=== PATIENT | male | born 1965 | race Caucasian/White ===

== ENCOUNTER 2017-10-28 20:22 | Emergency (ER) | payer MEDICARE ==
[2017-10-28 20:40] VITALS: BP 134/92; PULSE 64; RESP 18; TEMP 97.8
--- NOTE | 2017-10-28 20:56 | ED ---
Neck Injury/Pain HPI - General Chief Complaint: Neck Pain/Injury Stated Complaint: neck pain Time Seen by Provider: 10/28/17 20:40 Source: patient, RN notes reviewed Mode of arrival: ambulatory Limitations: no limitations - History of Present Illness Initial Comments: This is a 52-year-old male who presents to the emergency department with chief complaint of neck pain. Patient states that he has had left-sided neck pain for the past 8 months. He states that he woke up one morning and thought that he had just slept on his neck wrong. He states that ever since then the pain has progressed. He states that he feels his vertebra are moving. He states that he feels the vertebra "shift and clunk." He denies any specific injuries or trauma. He states that there is a constant baseline pain but that it is increased with movement of the neck. He states that sometimes when he turns his head to the left he feels a sharp shooting pain down the left arm. He also complains of some numbness and tingling to the left upper extremity. He does state that [facility] does have [facility] of the cervical spine. Patient denies any fevers or chills, chest pain or shortness of breath, nausea or vomiting. He does state that he has been getting headaches and had an episode of dizziness today where he felt like his "equilibrium was off." He states he has not been taking any medications for treatment of the neck pain. - Related Data Allergies Allergy/AdvReac Type Severity Reaction Status Date / Time No Known Allergies Allergy Verified 10/28/17 20:40 Review of Systems ROS Statement: Those systems with pertinent positive or pertinent negative responses have been documented in the HPI. ROS Other: All systems not noted in ROS Statement are negative. Past Medical History Additional Past Medical History / Comment(s): chronic back pain History of Any Multi-Drug Resistant Organisms: None Reported Additional Past Surgical History / Comment(s): facial reconstruction Past Psychological History: No Psychological Hx Reported Smoking Status: Current every day smoker Past Alcohol Use History: None Reported Past Drug Use History: None Reported General Exam - General Exam Comments Initial Comments: General: Awake and alert, well-developed; in no apparent distress. HEENT: Head atraumatic, normocephalic. Pupils are equal, round and reactive to light. Extraocular movements intact. Oropharynx moist without erythema or exudate. Bilateral TMs are pearly without effusion. Neck: Supple. Normal ROM. There is tenderness on palpation of left cervical musculature. No vertebral bony point tenderness. Cardiovascular: Regular rate and rhythm. No murmurs, rubs or gallops. Chest symmetrical. Radial pulses are 2+ equal and palpable bilaterally. Respiratory: Lungs clear to auscultation bilaterally. No wheezes, rales or rhonchi. Normal respiratory effort with no use of accessory muscles. Musculoskeletal: Normal ROM, no tenderness bilateral upper and lower extremities. Ambulating normally. Skin: [place], warm and dry without rashes or lesions. Neurological: Alert and oriented x3. CN II-XII grossly intact. Speech is fluent and answers are appropriate. No focal neuro deficits. Sensation is intact. Psychiatric: Normal mood and affect. No overt signs of depression or anxiety noted. Limitations: no limitations Course Vital Signs 10/28/17 20:37 Temperature 97.8 F Pulse Rate 64 Respiratory 18 Rate Blood Pressure 134/92 O2 Sat by Pulse 96 Oximetry Medical Decision Making - Medical Decision Making This is a 52-year-old male who presents to the emergency department with chief complaint of neck pain that has been going on for 8 months. An x-ray was obtained and it revealed spondylosis at C6 to C7. Recommended the use of anti- inflammatories. Patient states that he has been taking ibuprofen with minimal relief. I offered prescription of muscle relaxers as well and the patient declines. He does state that he has appointment scheduled for December 04 with neurology. Patient's vital signs are stable and he is in no acute distress at this time. He will be discharged home. - Radiology Data Radiology results: report reviewed X-ray cervical spine findings: The cervical vertebra have normal alignment. Posterior elements are intact. There is some narrowing at C6 to 7 disc space with anterior spurring. Atlantoaxial facet joint is normal. There are no cervical ribs. Neural foramina are fairly well-maintained. Impression: Spondylosis at C6 to 7. No fracture. Disposition Clinical Impression: Cervical spondylosis Disposition: HOME SELF-CARE Condition: Good Instructions: Cervical Radiculopathy (ED) Additional Instructions: Please follow-up with neurology as scheduled. May take ibuprofen 600 mg every 6 hours. Please follow up with primary care provider within 1-2 days. Return to emergency department if symptoms should worsen or any concerns arise. Is patient prescribed a controlled substance at d/c from ED?: No Referrals: Sean Moser DO [Primary Care Provider] - 1-2 days Time of Disposition: 21:54
--- NOTE | 2017-10-28 21:40 | XR ---
EXAMINATION TYPE: XR cervical spine comp DATE OF EXAM: 10/28/2017 COMPARISON: NONE HISTORY: Neck pain TECHNIQUE: 6 views FINDINGS: The cervical vertebra have normal alignment. Posterior elements are intact. There is some n arrowing at C6-7 disc space with anterior spurring. Atlantoaxial facet joint is normal. There are no cervical ribs. Neural foramina are fairly well-maintained. IMPRESSION: Spondylosis at C6-7. No fracture.
== END 2017-10-28 22:00 | disposition home or self-care (01) ==
LOC: EC 20:22
DX: M47.812 Spondylosis without myelopathy or radiculopathy, cervical region (principal); F17.200 Nicotine dependence, unspecified, uncomplicated
CPT/HCPCS: 72050; 99283

== ENCOUNTER → 2017-12-27 | Outpatient (CLI) | payer OTHER ==
[2017-12-27 15:43] LABS: Blood Urea Nitrogen 15 mg/dL (9-20)
== END | disposition home or self-care (01) ==
LOC: LABWHC1 15:18
PROVIDERS: ATTEND Physician Assistant
DX: Z01.812 Encounter for preprocedural laboratory examination (principal); S09.90XA Unspecified injury of head, initial encounter; R51 Headache; R42 Dizziness and giddiness; M54.2 Cervicalgia
CPT/HCPCS: 82565; 84520

== ENCOUNTER → 2017-12-30 | Outpatient (CLI) | payer OTHER ==
--- NOTE | 2017-12-30 10:21 | US ---
EXAMINATION TYPE: US carotid duplex BILAT DATE OF EXAM: 12/30/2017 COMPARISON: NONE CLINICAL HISTORY: S09.90XA Head injury / M54.2 Cervicalgia. EXAM MEASUREMENTS: RIGHT: Peak Systolic Velocity (PSV) cm/sec ----- Right CCA: 87.9 ----- Right ICA: 61.4 ----- Right ECA: 99.7 ICA/CCA ratio: 0.7 RIGHT: End Diastole cm/sec ----- Right CCA: 22.2 ----- Right ICA: 25.7 ----- Right ECA: 21.8 LEFT: Peak Systolic Velocity (PSV) cm/sec ----- Left CCA: 83.3 ----- Left ICA: 59.4 ----- Left ECA: 91.9 ICA/CCA ratio: 0.7 LEFT: End Diastole cm/sec ----- Left CCA: 21.6 ----- Left ICA: 26.2 ----- Left ECA: 17.8 VERTEBRALS (direction of flow): Right Vertebral: Antegrade Left Vertebral: Antegrade Rhythm: Normal Minimal atherosclerotic changes with no significant velocity elevations. IMPRESSION: 1. Atheromatous plaquing without significant flow-limiting stenosis. Criteria for Assigning % of Stenosis / Diameter reduction (Estimation based on the indirect measurements of the internal carotid artery velocities (ICA PSV). 1. Normal (no stenosis)=ICA PSV < 125 cm/s: ratio < 2.0: ICA EDV<40 cm/s. 2. Less than 50% stenosis=ICA PSV < 125 cm/s: ratio < 2.0: ICA EDV<40 cm/s. 3. 50 to 69% stenosis=ICA PSV of 125 to 230 cm/s: ration 2.0 ? 4.0: ICA EDV 40-100 cm/s. 4. Greater than 70% stenosis to near occlusion= ICA PSV > 230 cm/s: ratio > 4.0: ICA EDV > 100 cm/s. 5. Near occlusion= ICA PSV velocities may be low or undetectable: variable ratio and ICA EDV. 6. Total occlusion=unable to detect flow.
--- NOTE | 2017-12-30 11:42 | MR ---
EXAMINATION TYPE: MR brain wo/w cspine wo DATE OF EXAM: 12/30/2017 COMPARISON: Cervical spine x-ray October 28, 2017 HISTORY: Dizziness, head injury, Neck pain all per order. Headache with neck pain and dizziness with pain or weakness into left arm and shoulder per patient. TECHNIQUE: Multiplanar, multisequence images of the brain and brainstem is performed without and with IV contras t, utilizing 11.5 mL intravenous Gadavist . Multiplanar, multisequence imaging of cervical spine is p erformed without contrast. FINDINGS: BRAIN: Diffusion weighted images demonstrate no evidence of a recent infarct or other diffusion abnormality. There is no no worrisome extra-axial fluid collection. The ventricular system and cisternal spaces are normal in size and appearance. The brain volume is age appropriate. There are some scattered fo ci of T2 hyperintensity seen throughout the white matter bilaterally. Approximately 5-10 small scatte red lesions are seen measuring 3 mm or smaller in size. Midline structures demonstrate normal morphology. The craniocervical junction appears within normal limits. Post contrast images demonstrate no abnormal enhancement. The dural venous sinuses appear pa tent. The visualized sinuses are clear and the globes are intact. Nasal septum is deviated to right o f midline. IMPRESSION: Mild to minimal nonspecific white matter changes may be on basis of altered vascular mech anics related to product of migraine headaches, other etiologies are not excluded. No suspicious enha ncement is noted. C-SPINE: Evaluation is suboptimal as is degraded by motion artifact. FINDINGS: Sagittal images of the cervical spine show the craniocervical junction to appear within nor mal limits. The cervical and upper thoracic spinal cord is normal in course, caliber, and signal. V ertebral alignment is straightened. There is fairly moderate disc space narrowing and anterior spurri ng C6-C7 level. The vertebral body and intravertebral disk heights otherwise are normal. Small poste rior disc herniations are seen effacing anterior thecal sac C5-C6 through C7-T1 levels. Heterogeneous Modic type I endplate changes anteriorly C6-C7 level are noted. Axial images at C2-C3 level shows left-sided uncovertebral facet degenerative changes causing mild to moderate left-sided neural foraminal narrowing. Right-sided neural foramen is patent. Axial images at C3-C4 level show uncovertebral facet degenerative changes bilaterally causing mild le ft-sided neural foraminal narrowing. Spinal canal is preserved. Right-sided neural foramen is patent. Axial images at C4-C5 level show uncovertebral facet degenerative changes bilaterally causing mild to moderate bilateral neural foraminal narrowing. Spinal canal is preserved. Bilateral neural foramina are patent. Axial images at C5-C6 level show artifact from motion making evaluation suboptimal. There is small ce ntral disc protrusion mildly effacing anterior thecal sac, bilateral neural foramina are patent. Axial images at C6-C7 level show broad-based posterior disc protrusion mildly effacing anterior theca l sac, bilateral neural foramina are patent. Motion artifact degradation is noted. Axial images at C7-T1 level are felt within normal limits. IMPRESSION: Straightening of cervical spine with multilevel degenerative changes seen as detailed abo ve.
== END | disposition home or self-care (01) ==
LOC: RADUSMAIN 09:08
PROVIDERS: ATTEND Psychiatry & Neurology Neurology
DX: I65.29 Occlusion and stenosis of unspecified carotid artery (principal); M47.812 Spondylosis without myelopathy or radiculopathy, cervical region; M50.222 Other cervical disc displacement at C5-C6 level; M48.02 Spinal stenosis, cervical region
CPT/HCPCS: 93880; 70553; 72141; A9581

== ENCOUNTER → 2022-12-13 | Outpatient (CLI) | payer OTHER ==
[2022-12-13 15:53] LABS: Blood Urea Nitrogen 15.4 mg/dL (9.0-27.0); Carbon Dioxide 21.7 mmol/L (21.6-31.8); Chloride 103 mmol/L (96-109); Potassium 4.2 mmol/L (3.5-5.5); Sodium 138 mmol/L (135-145)
[2022-12-13 20:38] LABS: HCT 48.9 % (39.6-50.0); HGB 16.1 d/dL (12.0-15.0); MCH 29.8 pg (27.0-32.0); MCHC 32.9 d/dL (32.0-37.0); MCV 90.6 FL (80.0-97.0); Mean Platelet Volume 9.5 FL (9.5-12.2); NRBC Per 100 WBC 0 X 10*3/uL (0.00-0.01); Platelet Count 316 X 10*3/uL (140-440); RDW 13.7 % (11.5-14.5); WBC 11.13 X 10*3/uL (4.50-10.00)
== END | disposition home or self-care (01) ==
LOC: LABWHC1 08:18
PROVIDERS: ATTEND Internal Medicine Interventional Cardiology
DX: Z01.812 Encounter for preprocedural laboratory examination (principal); R94.39 Abnormal result of other cardiovascular function study
CPT/HCPCS: 36415; 80051; 82565; 84520; 85027

== ENCOUNTER 2022-12-24 06:43 | Day surgery (SDC) | payer OTHER ==
[~2022-12-24 06:43] MED LIST: ALPRAZolam 0.25 MG TAB PO PRN; ALPRAZolam 0.5 MG TAB PO PRN; ASPIRIN 325 MG TAB PO STA; NITROGLYCERIN SL TABS 0.4 MG TAB SUBLINGUAL PRN; SODIUM CHLORIDE 0.9% 1,000 ML IV ONE; SODIUM CHLORIDE 0.9% 1,000 ML in EMPTY BAG 1 BAG IV SCH
[2022-12-24 07:26] VITALS: RESP 16; TEMP 97.3
[2022-12-24] MEDS ORDERED: fentaNYL (PF) 50 MCG/ML 2 ML AMP ONE (07:33)
[2022-12-24] MEDS ORDERED: HEPARIN SODIUM 1,000 UN/ML (10ML VL) ONE (07:33)
[2022-12-24] MEDS ORDERED: fentaNYL (PF) 50 MCG/ML 2 ML AMP IV ONE (07:45)
[2022-12-24] MEDS ORDERED: LIDOCAINE 1% INJ 10MG/ML (5 ML VIAL-PF) SQ ONE (07:49)
[2022-12-24] MEDS ORDERED: MIDAZOLAM 2 MG/2 ML VIAL IV ONE (07:49)
[2022-12-24] MEDS ORDERED: VERAPAMIL SYRINGE (5 MG/10 ML) INTRAARTER ONE (07:50)
[2022-12-24] MEDS: HEPARIN SODIUM 1,000 UN/ML (10ML VL) IV ONE ×2 (07:55→08:09)
[2022-12-24] MEDS ORDERED: CLOPIDOGREL 75 MG TAB ONE (08:05)
[2022-12-24] MEDS ORDERED: CLOPIDOGREL 75 MG TAB PO ONE (08:09)
[2022-12-24] MEDS ORDERED: IOPAMIDOL-370 100ML BTL INJ ONE ×2 (08:34→08:48)
[2022-12-24] MEDS ORDERED: MAG HYDROX/AL HYDROX/SIMETH 30 ML CUP PO PRN (08:57)
[2022-12-24] MEDS ORDERED: RX INFO: IV CONTRAST WAS GIVEN 1 EACH MISC MISCELLANE PRN (08:57)
[2022-12-24] MEDS ORDERED: ZOLPIDEM 5 MG TAB PO PRN (08:57)
[2022-12-24] MEDS ORDERED: ATROPINE SULFATE 0.1 MG/ML 10ML SYRINGE IV PRN (08:57)
[2022-12-24] MEDS ORDERED: NITROGLYCERIN SL TABS 0.4 MG TAB SUBLINGUAL PRN (08:57)
[2022-12-24] MEDS ORDERED: NON FORMULARY DRUG (Rosuvastatin 20 MG Tablet) PO SCH (09:00)
[2022-12-24] MEDS ORDERED: ASPIRIN 81 MG PO SCH (09:00)
[2022-12-24] MEDS ORDERED: lisinopriL 5 MG TAB PO SCH (09:00)
[2022-12-24] MEDS ORDERED: SODIUM CHLORIDE 0.9% 1,000 ML in EMPTY BAG 1 BAG IV SCH (09:00)
[2022-12-24] MEDS ORDERED: METOPROLOL TARTRATE 25 MG TAB PO SCH (09:00)
[2022-12-24 18:00] VITALS: BP 120/65; PULSE 58
[2022-12-25] MEDS ORDERED: CLOPIDOGREL 75 MG TAB PO SCH (09:00)
--- NOTE | 2022-12-26 13:11 | P.CARDCATH ---
Date of Procedure: 12/24/22 Description of Procedure: Cardiac Catheterization: The patient is a 57-year-old male who presented with symptoms of progressive dyspnea. Recommendations were made regarding cardiac catheterization, the risks and the complications were discussed with the patient who is in full understanding and agreement. Procedure Description: Patient was brought to lab clerk in fasting semi-sedated state after receiving Fentanyl and Benadryl achieiving moderate conscious sedated state. Using Xylocaine Anesthesia and Seldinger technique, a 6-Burkinan sheath was introduced in the right radial artery . Subsequently, selective coronary angiography was performed using a 5-Burkinan 3.5 bend Yulia catheter. Multiple views of the coronary artery including hemiaxial views were obtained. The right Yulia catheter was used to cross the aortic valve and LVEDP was calculated. PCI: After removing the catheters a 6-Burkinan EBU 3.75 guiding cath, after cannulating the left main a 014 BMW J-wire was positioned in the distal LAD. Subsequently a [employer] eye intravascular ultrasound catheter was introduced and imaging was performed. After removing the catheter 3.5 x 18 mm Xience jimy point was deployed at 16 angeles, after removing the balloon 3.5 x 12 mm Xience jimy point and dilated at 16 angeles. After removing the catheter intravascular ultrasound imaging was repeated subsequently a 4.0 x 12 mm NC Treck was advanced to the distal stent and dilated at 10 angeles and after removing the balloon a 4.5 x 15 mm NC Treck balloon was advanced to the proximal stent and an inflation to 10 angeles was done. After the last inflation the wire was withdrawn back and again he catheter, images were obtained and revealed stable successful stenting. Following that, catheter and sheath were removed. Hemostasis was obtained with deployment of TR band . There was no immediate complication. Patient was returned to room in stable condition. Of note, the patient received a total of 9000 units of intravenous heparin as well as intra-arterial verapamil. He received an oral loading dose of clopidogrel, his ACT was monitored. Findings: Left main: This is a large size vessel, bifurcating into LAD and left circumflex, left main has no high-grade stenosis LAD: This is a large size vessel, reaching to the apex, giving rise to a very proximal diagonal branch the second diagonal branch is small in caliber. At the takeoff of the second diagonal branch there is a 90% stenosis there as of the vessel has no high-grade stenosis Left circumflex: This is a nondominant vessel giving rise to 2 obtuse marginal branch that had no evidence of high-grade stenosis RCA: This is a dominant vessel large in caliber, bifurcating into PDA and PLV. The right, is diffusely disease in the midsegment with area of stenosis up to 70% the distal segment has an area of stenosis up to 99% then is totally occluded prior to the bifurcation. There is slow flow into the PDA and PLV. There is contralateral collaterals from the LAD system to the PDA and the PLV as well. Left Ventriculogram: Not performed Hemodynamics: There was no gradient across the aortic valve , LVEDP was 16-20 mmHg Conclusion: 1. Chronically occluded distal RCA with ipsilateral and contralateral collaterals 2. Critical stenosis in the mid LAD 3. No obstructive disease in the left circumflex 4. Successful stenting of the mid LAD with reduction of stenosis from 90% to 0% with intravascular ultrasound imaging Recommendations: The patient will continue on aspirin and Plavix in addition to aggressive coronary risks modifications for 6 months, he'll be reevaluated down the road regarding the need to undergo revascularization of his RCA. The findings and the recommendations were discussed with the patient and the family and they were in full understanding and agreement.
== END 2022-12-24 12:37 | disposition home or self-care (01) ==
LOC: CATHCVL 06:43
PROVIDERS: ATTEND Internal Medicine Interventional Cardiology
DX: I25.10 Atherosclerotic heart disease of native coronary artery without angina pectoris (principal); I25.82 Chronic total occlusion of coronary artery; I10 Essential (primary) hypertension; E78.5 Hyperlipidemia, unspecified; E11.9 Type 2 diabetes mellitus without complications; F17.210 Nicotine dependence, cigarettes, uncomplicated; I49.3 Ventricular premature depolarization; E78.2 Mixed hyperlipidemia; G47.33 Obstructive sleep apnea (adult) (pediatric); Z79.899 Other long term (current) drug therapy
CPT/HCPCS: 92978; 93458; C9600; C1769 ×3; C1887; C1894; C1753; C1874 ×2; C1725 ×2; J2250; J2001; J3010; J1644; Q9967

== ENCOUNTER → 2023-03-01 | Outpatient (CLI) | payer OTHER | END | disposition home or self-care (01) | LOC: RADUSWWP 09:48 | PROVIDERS: ATTEND Internal Medicine Interventional Cardiology | DX: Z53.9 Procedure and treatment not carried out, unspecified reason (principal) ==

== ENCOUNTER 2023-04-24 09:30 | Day surgery (SDC) | payer OTHER ==
[2023-04-18 15:34] VITALS: BMI 35.9
[~2023-04-24 09:30] MED LIST changes: -SODIUM CHLORIDE 0.9% 1,000 ML IV ONE; -SODIUM CHLORIDE 0.9% 1,000 ML in EMPTY BAG 1 BAG IV SCH
[2023-04-24] MEDS ORDERED: VERAPAMIL 2.5 MG/ML 2 ML AMP ONE (10:59)
[2023-04-24] MEDS ORDERED: LIDOCAINE 1% INJ 10MG/ML (20 ML MDV) ONE (11:00)
[2023-04-24 11:22] LABS: Basophils % (A) 1 %; Eosinophils # (A) 0.2 k/uL (0-0.7); Eosinophils % (A) 3 %; HCT 42.3 % (39.0-53.0); HGB 14.6 gm/dL (13.0-17.5); Lymphocytes # (A) 3.2 k/uL (1.0-4.8); Lymphocytes % (A) 39 %; MCH 30.3 pg (25.0-35.0); MCHC 34.6 g/dL (31.0-37.0); MCV 87.5 fL (80.0-100.0); Mean Platelet Volume 7.1; Monocytes # (A) 0.5 k/uL (0-1.0); Monocytes % (A) 6 %; Neutrophils # (A) 4.1 k/uL (1.3-7.7); Neutrophils % (A) 49 %; Platelet Count 201 k/uL (150-450); RBC 4.83 m/uL (4.30-5.90); RDW 12.8 % (11.5-15.5); WBC 8.2 k/uL (3.8-10.6)
[2023-04-24] MEDS ORDERED: fentaNYL (PF) 50 MCG/ML 2 ML AMP ONE (11:37)
[2023-04-24] MEDS ORDERED: HEPARIN SODIUM 1,000 UN/ML (10ML VL) ONE ×2 (11:37→12:23)
[2023-04-24 11:38] LABS: African American GFR (CKD) >90 (>60 ml/min/1.73 sqM); Anion Gap 11 mmol/L; Blood Urea Nitrogen 10 mg/dL (9-20); Carbon Dioxide 22 mmol/L (22-30); Chloride 104 mmol/L (98-107); Glucose 121 mg/dL (74-99); Non-African American GFR(CKD) >90 (>60 ml/min/1.73 sqM); Potassium 4.1 mmol/L (3.5-5.1); Sodium 137 mmol/L (137-145)
[2023-04-24] MEDS ORDERED: IV FLUID CONTINUATION 1,000 ML IV ONE (12:00)
[2023-04-24] MEDS: fentaNYL (PF) 50 MCG/ML 2 ML AMP IVP ONE ×2 (12:02→13:43)
[2023-04-24] MEDS ORDERED: LIDOCAINE 1% INJ 10MG/ML (20 ML MDV) SQ ONE (12:04)
[2023-04-24] MEDS: MIDAZOLAM 2 MG/2 ML VIAL IVP ONE ×2 (12:05→12:50)
[2023-04-24] MEDS ORDERED: VERAPAMIL SYRINGE (5 MG/10 ML) INTRAARTER ONE (12:06)
[2023-04-24] MEDS: HEPARIN SODIUM 1,000 UN/ML (10ML VL) IV ONE ×5 (12:12→13:16)
[2023-04-24] MEDS ORDERED: HYDROmorphone 0.5 MG/0.5 ML SYRINGE IVP ONE (13:03)
[2023-04-24] MEDS ORDERED: IOPAMIDOL-370 200ML BTL INJ ONE ×2 (13:56→14:17)
[2023-04-24] MEDS ORDERED: RX INFO: IV CONTRAST WAS GIVEN 1 EACH MISC MISCELLANE PRN (14:32)
[2023-04-24] MEDS ORDERED: NITROGLYCERIN SL TABS 0.4 MG TAB SUBLINGUAL PRN (14:32)
[2023-04-24] MEDS ORDERED: ATROPINE SULFATE 0.1 MG/ML 10ML SYRINGE IV PRN (14:32)
[2023-04-24] MEDS ORDERED: MAG HYDROX/AL HYDROX/SIMETH 30 ML CUP PO PRN (14:32)
[2023-04-24] MEDS ORDERED: ZOLPIDEM 5 MG TAB PO PRN (14:32)
--- NOTE | 2023-04-24 14:44 | P.CARDCATH ---
Date of Procedure: 04/24/23 Description of Procedure: PERCUTANEOUS TRANSLUMINAL CORONARY ANGIOPLASTY Asst.: Dr. Borden CLINICAL INFORMATION: The patient is a 58-year-old male with a known history of CAD status post stenting of the LAD, chronically occluded RCA continued and having symptoms of chest discomfort in spite of maximal medical therapy . Recommendations were made regarding angioplasty and stenting. The procedure as well as the risks and the complications were discussed with the patient who was in full understanding and agreement. PROCEDURE: The patient was brought to the laborer shipyard in the fasting and semi- sedated state after receiving fentanyl and Benadryl using Xylocaine anesthesia in the Seldinger technique a 6-Portuguese sheath was introduced in the right radial artery and using micropuncture technique an 8-Portuguese sheaths were then introduced in the right femoral artery. A 6 Portuguese EBU 3.75 guiding catheter wa s introduced into the system. And was used to cannulate the left main. An 8- Portuguese AL 0.75 was used to cannulate the right coronary ostium. After after that images with dual ejection were obtained. A 0.014 BMW J wire with a Corsair catheter and guide liner were advanced across the proximal lesion and positioned distally. Attempts to advance the wire to the chronic total occlusion were unsuccessful, the wire was exchanged to a 0.014 whisper J-wire and subsequently fielder XT that were unsuccessful in crossing the lesion. Subsequently a pilot steam yacht 200 wire was advanced and was able to cross the lesion. The Corsair catheter was removed with trapping in the guiding catheter. Following that a 3.0 x 20 mm Treck balloon was advanced and inflated at 8 atmosphere. Multiple inflations throughout the vessel were done. After removing the balloon a [place] chin eye IVUS catheter was advanced and imaging were obtained. Following that a 2.75 x 28 mm Xience stent was deployed. It was dilated at 16. Proximal to that stent a 3.0 x 23 mm Xience jimy point was deployed 14 angeles and proximal to that stent a 4.0 x 38 mm Xience jimy point stenting was deployed and when similar stent proximal to its close to the proximal segment were deployed at 16 angeles. Subsequently repeat intravascular ultrasound was done. Subsequent to that at 2.25 X 12 mm Xience jimy point was deployed in the PLV at 14 angeles. After removing the balloon a 3.0 x 20 mm NC Treck balloon was advanced to the distal segment and inflated at 10 angeles, subsequently 3.5 x 20 mm NC Treck was advanced to the distal RCA and inflated at 10 angeles and subsequently a 4.0 X20 mm NC trek was advanced proximally and inflation in the proximal 2 stents were done at 10 angeles. After the last inflation, after appropriate wait, the balloon and the guidewire were withdrawn back into the guiding catheter. Images were obtained and repeated. Those images reveal stable successful stenting. At that point, the guiding catheter, the balloon, and guidewire were removed. The sheath was removed. Hemostasis was obtained with and deployment of a TR band and an Angio-Seal. There were no immediate complications. The patient was returned to the room in stable condition. Of note, the patient received 13,000 units of heparin and continued on Plavix. His ACT was followed. There was no immediate complications. He had chest discomfort that resolved at the end of the procedure. RESULTS: Successful stenting of the mid and distal RCA with reduction of stenosis from 100 % to less than 5 %. RECOMMENDATIONS: The patient will continue on aspirin and Plavix for 6 months in addition to aggressive coronary risk modifications, maintaining the LDL less than 70 mg/dL. The findings and recommendations were discussed with the patient and the family, they are in full understanding and agreement. Duration of sedation: 132 minutes
[2023-04-24] MEDS ORDERED: SODIUM CHLORIDE 0.9% 1,000 ML in EMPTY BAG 1 BAG IV SCH (14:45)
[2023-04-24] MEDS: SODIUM CHLORIDE 0.9% 1,000 ML in EMPTY BAG 1 BAG IV SCH (16:02)
[2023-04-24] MEDS: METOPROLOL TARTRATE 25 MG TAB PO SCH (20:38)
[2023-04-25] MEDS: SODIUM CHLORIDE 0.9% 1,000 ML in EMPTY BAG 1 BAG IV SCH ×2 (06:07→08:54)
[2023-04-25 06:17] LABS: Glucose,Whole Blood 123 mg/dL (70-110)
[2023-04-25 08:29] LABS: African American GFR (CKD) >90 (>60 ml/min/1.73 sqM); Anion Gap 10 mmol/L; Blood Urea Nitrogen 11 mg/dL (9-20); Calcium 8.8 mg/dL (8.4-10.2); Carbon Dioxide 24 mmol/L (22-30); Chloride 103 mmol/L (98-107); Glucose 118 mg/dL (74-99); Non-African American GFR(CKD) >90 (>60 ml/min/1.73 sqM); Potassium 4.3 mmol/L (3.5-5.1); Sodium 137 mmol/L (137-145)
--- NOTE | 2023-04-25 08:34 | P.PN ---
Subjective Progress Note Date: 04/25/23 PROGRESS NOTE The patient is a 58-year-old male with a known history of CAD status post stenting of the LAD with known chronic total occlusion of the RCA who had persistent chest discomfort. He underwent recanalization of the RCA. He's feeling well this morning, he denies any chest discomfort, dizziness or palpitations. His breathing is stable. He is ambulating without difficulty and continues to be in sinus mechanism Medications: Aspirin, Plavix 75 g daily, Zestril 5 mg daily, Lopressor 25 mg twice a day, Crestor 20 mg daily, Imdur 30 mg daily PHYSICAL EXAMINATION: Blood pressure 110/60 heart rate 60 LUNGS: Clear to auscultation HEART: Regular rate and rhythm, S1, S2. No S3. No systolic murmur ABDOMEN: Soft, nontender, no organomegaly EXTREMETIES: No edema, right groin no hematoma, right radial pulse intact LAB: BUN 11, creatinine 0.69. EKG with no acute changes IMPRESSION: 1. Status post stenting of chronic total occlusion of the RCA 2. Patent stent to the LAD 3. Hypertension 4. Hyperlipidemia PLAN: 1. Continue present therapy 2. Increase physical activity 3. Discharge home today 4. And follow-up in one week Objective - Vital Signs Vital signs: Vital Signs Temp 97.8 F 04/25/23 04:00 Pulse 53 L 04/25/23 04:00 Resp 16 04/25/23 04:00 BP 110/62 04/25/23 04:00 Pulse Ox 97 04/25/23 04:00 FiO2 Intake & Output 04/24/23 04/25/23 04/25/23 18:59 06:59 18:59 Intake Total 590 Output Total 900 350 Balance -310 -350 Weight 124.6 kg 124.5 kg Intake: IV 350 Oral 240 Output: Urine 900 350 Other: # Voids 1 - Labs CBC & Chem 7: 04/24/23 09:51 04/25/23 07:42 Labs: Abnormal Lab Results - Last 24 Hours (Table) 04/24/23 04/25/23 04/25/23 Range/Units 09:51 06:15 07:42 Glucose 121 H 118 H (74-99) mg/dL POC Glucose (mg/dL) 123 H (70-110) mg/dL
[2023-04-25] MEDS: METOPROLOL TARTRATE 25 MG TAB PO SCH (08:57)
[2023-04-25] MEDS ORDERED: CLOPIDOGREL 75 MG TAB PO SCH (09:00)
[2023-04-25] MEDS ORDERED: ATORVASTATIN 40 MG TAB PO SCH (09:00)
[2023-04-25] MEDS ORDERED: lisinopriL 5 MG TAB PO SCH (09:00)
[2023-04-25] MEDS ORDERED: ASPIRIN 81 MG PO SCH (09:00)
[2023-04-25 09:55] VITALS: BP 122/72; PULSE 73; RESP 18; TEMP 98
== END 2023-04-25 10:29 | disposition home or self-care (01) ==
LOC: CATHCVL 09:30 → 3SCARD 14:16 → CATHCVL 04-25 10:29
PROVIDERS: ATTEND Internal Medicine Interventional Cardiology
DX: I25.10 Atherosclerotic heart disease of native coronary artery without angina pectoris (principal); I10 Essential (primary) hypertension; E78.5 Hyperlipidemia, unspecified; M19.90 Unspecified osteoarthritis, unspecified site; E11.9 Type 2 diabetes mellitus without complications; Z95.5 Presence of coronary angioplasty implant and graft; Z79.82 Long term (current) use of aspirin; Z79.02 Long term (current) use of antithrombotics/antiplatelets; Z79.899 Other long term (current) drug therapy; I25.82 Chronic total occlusion of coronary artery; Z79.84 Long term (current) use of oral hypoglycemic drugs; Z87.891 Personal history of nicotine dependence
CPT/HCPCS: 92978; 80048 ×2; 85025; C9607; C1769 ×7; C1760; C1887 ×3; C1894 ×2; C1725 ×4; C1753; C1874 ×4; C1751; J2250; J2001; J3010; J1644; J1170; Q9967

== ENCOUNTER → 2024-05-05 | Outpatient (CLI) | payer OTHER ==
--- NOTE | 2024-05-06 08:54 | US ---
EXAMINATION TYPE: US extremity nonvasc mass RT DATE OF EXAM: 05/05/2024 COMPARISON: NONE CLINICAL INDICATION: Male, 59 years old with history of M71.331 CYST RIGHT WRIST; Cyst of right wrist per order. Patient feels lump in right wrist. Patient had angioplasty in this wrist 1 year ago. TECHNIQUE: Scanned right wrist at patient's area of concern. FINDINGS/IMPRESSION: Complex hypoechoic area without vascular flow seen at area of concern within th e right wrist: 4.2 x 1.8 x 1.3 cm. Somewhat elongated appearance. Artery that appears to branch from the radial artery is seen coursing along the periphery of this area. This is indeterminate and could represent a hematoma versus venous thrombosis versus other etiologies such as a complex cyst. Further evaluation with CT with IV contrast is recommended. [facility], , 05/06/2024 8:52 AM
== END | disposition home or self-care (01) ==
LOC: RADUSWWP 15:25
PROVIDERS: ATTEND Family Medicine
DX: M71.331 Other bursal cyst, right wrist (principal)

== ENCOUNTER → 2024-06-08 | Outpatient (CLI) | payer OTHER ==
--- NOTE | 2024-06-08 19:27 | CT ---
EXAMINATION TYPE: CT wrist RT w con DATE OF EXAM: 06/08/2024 5:33 PM COMPARISON: Ultrasound 05/05/2024 CLINICAL INDICATION: Male, 59 years old with history of M71.331 OTHER BURSAL CYST, RIGHT WRIST; PHH, bursal cyst rt wrist TECHNIQUE: Axial images were obtained of the CT wrist RT w con, Additional coronal and sagittal refor matted images and soft tissue and bone window were obtained for review. 3-D reconstruction was create d on a separate workstation. Contrast used:100 mL of Isovue 300 with IV Contrast, (None if empty) Oral contrast used: (None if empty) CT DLP: 92.9 mGycm, Automated exposure control for dose reduction was used. FINDINGS: There is no evidence of fracture, subluxation, or dislocation. No significant soft tissue swelling. No focal muscular atrophy or edema is identified. No radiopaque foreign body identified. Mi ld degeneration changes of the wrist present osteophyte formation and joint space narrowing. There ma y be subtle small step-off of the distal radius articular surface. The palpable marker correlates with small fluid collection somewhat irregular shaped measuring up to 15 x 6 mm. Extends into the thenar eminence. Measuring up to 31 mm in totality and may be arising fro m the wrist joint. IMPRESSION: 1. No evidence of fracture. 2. Irregular shaped fluid collection is seen on ultrasound possibly extending from the wrist joint c orrelate with MRI for soft tissue injury/plunging joint effusion there is infected bursa versus other . [facility], , 06/08/2024 7:25 PM
== END | disposition home or self-care (01) ==
LOC: RADCTMAIN 15:27
PROVIDERS: ATTEND Family Medicine
DX: M71.331 Other bursal cyst, right wrist (principal); M25.731 Osteophyte, right wrist
CPT/HCPCS: 73201; Q9967

== ENCOUNTER → 2024-09-25 | Day surgery (SDC) | payer OTHER ==
[~2024-09-25] MED LIST changes: -ASPIRIN 325 MG TAB PO STA; +ASPIRIN 81 MG PO SCH; +ATORVASTATIN 40 MG TAB PO SCH; +ATROPINE SULFATE 0.1 MG/ML 10ML SYRINGE IV PRN; +CLOPIDOGREL 75 MG TAB PO SCH; +ISOSORBIDE MONONITRATE ER 30 MG TAB.ER.24H PO SCH; +MAG HYDROX/AL HYDROX/SIMETH 30 ML CUP PO PRN; +METOPROLOL TARTRATE 25 MG TAB PO SCH; +RX INFO: IV CONTRAST WAS GIVEN 1 EACH MISC MISCELLANE PRN; +SODIUM CHLORIDE 0.9% 1,000 ML in EMPTY BAG 1 BAG IV SCH; +ZOLPIDEM 5 MG TAB PO PRN; +lisinopriL 5 MG TAB PO SCH
[2024-09-25] MEDS: SODIUM CHLORIDE 0.9% 1,000 ML in EMPTY BAG 1 BAG IV SCH (06:50)
[2024-09-25] MEDS: IV FLUID CONTINUATION 1,000 ML IV ONE ×2 (06:50→14:16)
[2024-09-25] MEDS: ASPIRIN 325 MG TAB PO STA (07:04)
[2024-09-25 07:07] VITALS: TEMP 97.9
[2024-09-25] MEDS: LIDOCAINE 1% INJ 10MG/ML (20 ML MDV) SQ ONE (07:34)
[2024-09-25] MEDS: fentaNYL (PF) 50 MCG/ML 2 ML AMP IVP ONE (07:34)
[2024-09-25] MEDS: VERAPAMIL SYRINGE (5 MG/10 ML) INTRAARTER ONE (07:35)
[2024-09-25] MEDS: HEPARIN SODIUM 1,000 UN/ML (10ML VL) IVP ONE (07:40)
[2024-09-25] MEDS: MIDAZOLAM 2 MG/2 ML VIAL IVP ONE (07:42)
[2024-09-25] MEDS: CLOPIDOGREL 75 MG TAB PO ONE (07:53)
[2024-09-25] MEDS: IOPAMIDOL-370 100ML BTL INJ ONE ×2 (08:31→09:23)
[2024-09-25] MEDS: NITROGLYCERIN 1000MCG/10ML SYRINGE INTRACORON ONE (09:19)
[2024-09-25] MEDS: HEPARIN SODIUM,PORCINE 10,000 UNIT in SODIUM CHLORIDE 0.9% 1,000 ML IRRIGATION PRN (09:23)
[2024-09-25] MEDS: HEPARIN SODIUM,PORCINE (1 ML) 2,500 UNIT in SODIUM CHLORIDE 0.9% 250 ML IRRIGATION PRN (09:23)
[2024-09-25 09:50] VITALS: RESP 16
--- NOTE | 2024-09-25 09:52 | P.CARDCATH ---
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 Recommendations were made regarding cardiac catheterization, the risks and the complications were discussed with the patient who is in full understanding and agreement. Procedure Description: Patient was brought to [facility] in fasting semi-sedated state after receiving Fentanyl and Benadryl achieiving moderate conscious sedated state. Using Xylocaine Anesthesia and modified Seldinger technique, a 6-Australian sheath was introduced in the right radial artery . Subsequently, selective coronary angiography was performed using a 5-Australian 3.5 bend left Yulia catheter and 5 band right Yulia catheter. Multiple views of the coronary artery including hemiaxial views were obtained. The 5 Australian pigtail catheter was used to cross the aortic valve and LVEDP was calculated. PCI: After removing the catheters a 6 Australian AL 0.75 guiding catheter was introduced into the system and after cannulating the left main a 0.014 BMW J-wire with a Corsair microcatheter, and a 6 Australian guide liner were advanced. The BMW wire could not cross the lesion at that time it was exchanged to a Fielder XT that was able to cross the proximal total occlusion into the PLV. After removing that wire a 0.014 whisper J-wire was advanced to the PLV. The Corsair catheter was removed and a 1.5 x 12 mm mini trek balloon was advanced and multiple inflations at 10 angeles were done. Following that the wire was exchanged with the help of a fine cross catheter. Subsequently a 2.0 x 12 mm trek balloon was advanced and multiple inflations were done. After removing the balloon and a [place] eye IVUS catheter was introduced and revealed a lumen in the PLV of 2.75 to 3.0 mm in diameter and in the distal RCA of 3.75-4.25 in diameter. After removing the IVUS a 2.5 x 18 mm Xience jimy point was deployed in the PLV at 16 angeles and subsequently a 3.5 x 38 mm Xience jimy point was deployed in the distal RCA into the PLV. In the overlapped segment 3.5 x 12 mm Xience jimy point was deployed at 16 angeles. Repeat IVUS imaging was performed and revealed good apposition distally with under deployment proximally. Subsequently a 4.0 x 20 mm NC trek balloon was advanced and multiple inflations at 10 angeles were done. Following that the wire was removed images were obtained and repeated and revealed stable successful stenting. Following that, catheter and sheath were removed. Hemostasis was obtained with deployment of vascular band . There was no immediate complication. Patient was returned to room in stable condition. Of note, the patient received a total of 13,000 units of intravenous heparin as well as intra-arterial verapamil. He received an oral loading dose of clopidogrel. His ACT was monitored. He had no chest discomfort or EKG changes with the inflations. Findings: Left main: This is a large size vessel, bifurcating into LAD and left circumflex, left main has no obstructive disease LAD: This is a large size vessel, reaching to the apex with a wraparound apex segment, the stented segment is patent with no significant in-stent restenosis. It gives rise to 2 small diagonal branch that have no high-grade stenosis Left circumflex: This is a large nondominant vessel giving rise to 2 obtuse marginal branch the first 1 is very proximal almost in the ramus intermedius territory. The left circumflex and its branches have no obstructive disease RCA: This is a large dominant vessel that is totally occluded distally with minimal antegrade flow. Proximally the stent has a 20 to 30% in-stent restenosis. There is collaterals from the LAD to the PDA and PLV Left Ventriculogram: Not performed Hemodynamics: There was no gradient across the aortic valve, LVEDP was 6-8 mmHg Conclusion: 1. Chronically occluded distal RCA 2. Patent stent to the LAD 3. Successful angioplasty of chronically totally occluded RCA with reduction stenosis from 100% to less than 5% with IVUS imaging and SILVIA-3 flow 4. Low LVEDP Recommendations: The patient will continue on aspirin and clopidogrel without any interruption for at least 6 months in addition to aggressive coronary risks modifications, maintaining LDL below 70 mg/dL. I discussed with him the risk of restenosis and occlusion. The findings and the recommendations were discussed with the patient and he was in full understanding and agreement. Duration of sedation is 112 minutes.
[2024-09-25 14:22] VITALS: BP 117/61; PULSE 58
== END | disposition home or self-care (01) ==
LOC: CATHCVL 05:50
PROVIDERS: ATTEND Internal Medicine Interventional Cardiology
DX: I25.10 Atherosclerotic heart disease of native coronary artery without angina pectoris (principal); I25.82 Chronic total occlusion of coronary artery; I10 Essential (primary) hypertension; E78.5 Hyperlipidemia, unspecified; M19.90 Unspecified osteoarthritis, unspecified site; E11.9 Type 2 diabetes mellitus without complications; G47.33 Obstructive sleep apnea (adult) (pediatric); Z87.891 Personal history of nicotine dependence; Z95.5 Presence of coronary angioplasty implant and graft; Z79.899 Other long term (current) drug therapy
CPT/HCPCS: 92978; 93458; C9600; C1769 ×5; C1894; C1887 ×3; C1725 ×3; C1753; C1874 ×3; C1751; J2250; J1644 ×3; J2003; J3010; Q9967; J2305